=== PATIENT | male | born 1990 | race American Indian/Alaskan Native ===

== ENCOUNTER 2020-10-18 02:40 | Emergency (ER) | payer SELFPAY ==
[2020-10-18] MEDS ORDERED: levETIRAcetam 500 MG TAB PO ONE (02:53)
[2020-10-18] MEDS ORDERED: levETIRAcetam 1000 MG/NS 0.75% 1,000 MG/100 ML BAG IV ONE (02:54)
[2020-10-18] MEDS ORDERED: TOPIRAMATE TAB 100 MG TAB PO ONE (02:54)
--- NOTE | 2020-10-18 03:52 | Emergency Department Report ---
ED Seizure HPI - General Stated Complaint: SEIZURES Time Seen by Provider: 10/18/20 02:54 Source: patient Mode of arrival: Stretcher Limitations: Altered Mental Status - History of Present Illness Initial Comments: 30-year-old male with a past medical history of seizure disorder who presents from mother-baby unit with multiple seizures. Patient apparently is a visitor and his is currently being treated. He had 4 seizures prior to ED arrival. He has been noncompliant with his Keppra and Topamax because he is at the bedside of his the past 4 days. Patient presents alert and oriented however appears to be weak with difficulty standing. Actively trying to leave the department and trying to refuse medical treatment. Patient is unstable for discharge given that he is postictal and unable to stand or ambulate without assistance. Patient is requiring constant counseling regarding importance of staying in the ED and continuing treatment. Wants to leave so he can be at his 's bedside. Is reported that patient did hit his head during his seizure activity - Related Data Allergies Allergy/AdvReac Type Severity Reaction Status Date / Time No Known Allergies Allergy Verified 10/18/20 03:00 ED Review of Systems ROS: Stated complaint: SEIZURES Other details as noted in HPI Comment: All other systems reviewed and negative ED Physical Exam - Other Other exam information: General: No acute distress Head: Atraumatic Eyes: normal appearance ENT: Moist mucous membranes Neck: Normal appearance, no midline tenderness Chest: Clear to auscultation bilaterally CV: Regular rate and rhythm Abdomen: Soft, normal bowel sounds, nontender, nondistended, no rebound or guarding Back: Normal inspection Extremity: Normal inspection, full range of motion Neuro: Alert, unsteady gait, no focal or sensory deficit. No slurred speech Psych: Appropriate behavior Skin: No rash ED Course Vital Signs 10/18/20 03:56 Temperature 98.2 F Pulse Rate 96 H Respiratory 18 Rate Blood Pressure 128/80 [Left] O2 Sat by Pulse 96 Oximetry - Reevaluation(s) Reevaluation #1: 10/18/20 04:58 Patient received IV Keppra and p.o. Topamax. He eloped from the department with IV in place and was back at mother-baby. Mother baby then placed him in a wheelchair and wheeled him back to the ED. Patient is now able to stand without assistance and states his girlfriend will be discharged tomorrow and he will be able to take his medications at that time. He is requesting to be discharged at this time. His labs and CT are unremarkable. ED Medical Decision Making - Lab Data Result diagrams: 10/18/20 03:31 10/18/20 03:31 Lab Results 10/18/20 10/18/20 Range/Units 03:31 03:31 WBC 9.6 (4.5-11.0) K/mm3 RBC 4.84 (3.65-5.03) M/mm3 Hgb 14.4 (11.8-15.2) gm/dl Hct 41.6 (35.5-45.6) % MCV 86 (84-94) fl MCH 30 (28-32) pg MCHC 35 H (32-34) % RDW 14.2 (13.2-15.2) % Plt Count 164 (140-440) K/mm3 Lymph % (Auto) 15.1 (13.4-35.0) % [place] % (Auto) 9.2 H (0.0-7.3) % Eos % (Auto) 0.8 (0.0-4.3) % Baso % (Auto) 0.8 (0.0-1.8) % Lymph # (Auto) 1.5 (1.2-5.4) K/mm3 [place] # (Auto) 0.9 H (0.0-0.8) K/mm3 Eos # (Auto) 0.1 (0.0-0.4) K/mm3 Baso # (Auto) 0.1 (0.0-0.1) K/mm3 Seg Neutrophils % 74.1 H (40.0-70.0) % Seg Neutrophils # 7.1 (1.8-7.7) K/mm3 Sodium 136 L (137-145) mmol/L Potassium 4.7 (3.6-5.0) mmol/L Chloride 102.2 (98-107) mmol/L Carbon Dioxide 20 L (22-30) mmol/L Anion Gap 19 mmol/L BUN 9 (9-20) mg/dL Creatinine 0.8 (0.8-1.3) mg/dL Estimated GFR > 60 ml/min BUN/Creatinine Ratio 11 % Glucose 105 H (75-100) mg/dL Calcium 9.1 (8.4-10.2) mg/dL Magnesium 1.90 (1.7-2.3) mg/dL - Radiology Data Radiology results: report reviewed CT head/brain wo con INDICATION: seizure x4, head injury. TECHNIQUE: Routine CT head. All CT scans at this location are performed using CT dose reduction for ALARA by means of automated exposure control. COMPARISON: None. FINDINGS: Intracranial: Herndon-white matter differentiation is maintained. No intracranial hemorrhage. No extra axial collection. No hydrocephalus. No herniation. Hyperattenuation along the left cerebellum on axial imaging represents a calcification along the tentorium. Sinuses: Paranasal sinuses and mastoid air cells are essentially clear. Orbits: Globes are intact. Calvarium: No acute fracture. Small right posterior occipital scalp encapsulated macroscopic fat containing lesion without nodularity or thickened septations. 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 IMPRESSION: 1. No acute intracranial abnormality. - Medical Decision Making 30-year-old male presents to the hospital after having 4 seizures in mother baby while he was accompanying/visiting his girlfriend who recently delivered a baby. Patient has been in mother-baby for last 4 days and has not had access to his seizure medication. During ED stay patient required recurrent encouragement to stay in the ED because he was adamant about leaving the de partment without treatment because he wanted to be by his girlfriend side. Upon arrival patient's gait was too unsteady and he was exhibiting post ictal symptoms and therefore he was held in the ED to complete his course of treatment for his safety. Patient did receive IV Keppra and p.o. Topamax. He eloped from the department with IV in place and went back to mother-baby. Mother baby wheeled him back to the ED to continue his treatment. Patient's vitals, labs, and CT head unremarkable. At time of discharge. Was able to stand and walk independently and is more cooperative. He will be discharged at this time with plans to resume his home meds in the a.m. Critical Care Time: No Critical care attestation.: If time is entered above; I have spent that time in minutes in the direct care of this critically ill patient, excluding procedure time. ED Disposition Clinical Impression: Seizure, Noncompliance with medication regimen Disposition: DC-01 TO HOME OR SELFCARE Is pt being admited?: No Does the pt Need Aspirin: No Condition: Stable Instructions: Seizure, Adult, [id number] Additional Instructions: Take your medications as prescribed. Follow-up with your doctor or doctor/clinic provided. Return if symptoms worsen as indicated by your discharge instructions. Referrals: your, doctor [Other] - 3-5 Days ERNESTO LAIRD MD [Staff Physician] - 3-5 Days Time of Disposition: 05:01
[2020-10-18 03:54] LABS: Basophils # (Auto) 0.1 K/mm3 (0.0-0.1); Basophils % (Auto) 0.8 % (0.0-1.8); Eosinophils # (Auto) 0.1 K/mm3 (0.0-0.4); Eosinophils % (Auto) 0.8 % (0.0-4.3); Hematocrit 41.6 % (35.5-45.6); Hemoglobin 14.4 gm/dl (11.8-15.2); Lymphocytes # (Auto) 1.5 K/mm3 (1.2-5.4); Lymphocytes % (Auto) 15.1 % (13.4-35.0); Mean Corpuscular HGB Conc 35 % (32-34); Mean Corpuscular Volume 86 fl (84-94); Monocytes # (Auto) 0.9 K/mm3 (0.0-0.8); Monocytes % (Auto) 9.2 % (0.0-7.3); Platelet Count 164 K/mm3 (140-440); Red Blood Count 4.84 M/mm3 (3.65-5.03); Red Cell Distribution Width 14.2 % (13.2-15.2)
[2020-10-18 03:57] VITALS: BP 128/80
--- NOTE | 2020-10-18 03:58 | Cat Scan Report ---
CT head/brain wo con INDICATION: seizure x4, head injury. TECHNIQUE: Routine CT head. All CT scans at this location are performed using CT dose reduction for A ABDIRIZAK by means of automated exposure control. COMPARISON: None. FINDINGS: Intracranial: Herndon-white matter differentiation is maintained. No intracranial hemorrhage. No extra a xial collection. No hydrocephalus. No herniation. Hyperattenuation along the left cerebellum on axial imaging represents a calcification along the tentorium. Sinuses: Paranasal sinuses and mastoid air cells are essentially clear. Orbits: Globes are intact. Calvarium: No acute fracture. Small right posterior occipital scalp encapsulated macroscopic fat cont aining lesion without nodularity or thickened septations. Findings consistent with a lipoma without s uspicious features, image 4 of series 2. IMPRESSION: 1. No acute intracranial abnormality. Signer Name: Trey Ashton MD Signed: 10/18/2020 3:53 AM Workstation Name: [id number]
[2020-10-18 04:14] LABS: BUN/Creatinine Ratio 11; Blood Urea Nitrogen 9 mg/dL (9-20); Calcium 9.1 mg/dL (8.4-10.2); Hemolysis Index 151
== END 2020-10-18 05:10 | disposition home or self-care (01) ==
LOC: ED 02:40
DX: G40.909 Epilepsy, unspecified, not intractable, without status epilepticus (principal); Z91.14 Patient's other noncompliance with medication regimen
CPT/HCPCS: 36415; 70450; 80048; 83735; 85025; 96374; 99284; J1953

== ENCOUNTER 2021-04-23 22:20 | Emergency (ER) | payer SELFPAY ==
--- NOTE | 2021-04-23 23:37 | XRay Report ---
XR chest routine 2V INDICATION / CLINICAL INFORMATION: cough COMPARISON: None available. FINDINGS: SUPPORT DEVICES: None. HEART / MEDIASTINUM: No significant abnormality. LUNGS / PLEURA: Lungs are clear. Costophrenic sulci are sharp. No pneumothorax. ADDITIONAL FINDINGS: No significant additional findings. IMPRESSION: 1. No acute findings. Signer Name: Trey Ashton MD Signed: 04/23/2021 11:33 PM Workstation Name: [id number]
[2021-04-23 23:38] LABS: Hematocrit 49.4 % (35.5-45.6); Hemoglobin 16.8 gm/dl (11.8-15.2); Mean Corpuscular HGB Conc 34 % (32-34); Mean Corpuscular Volume 86 fl (84-94); Platelet Count 166 K/mm3 (140-440); Red Blood Count 5.77 M/mm3 (3.65-5.03); Red Cell Distribution Width 13.8 % (13.2-15.2)
[2021-04-23] MEDS ORDERED: ONDANSETRON 4 MG/2 ML INJ IV ONE (23:52)
[2021-04-23] MEDS ORDERED: FAMOTIDINE 20 MG/2 ML INJ IV ONE (23:52)
[2021-04-23] MEDS ORDERED: SODIUM CHLORIDE 0.9% 1000 ML 1,000 ML IV ONE (23:52)
[2021-04-23 23:58] LABS: Alanine Aminotransferase 14 units/L (7-56); Albumin 4.5 g/dL (3.9-5); BUN/Creatinine Ratio 7; Blood Urea Nitrogen 8 mg/dL (9-20); Hemolysis Index 12
--- NOTE | 2021-04-24 00:41 | Emergency Department Report ---
ED General Adult HPI - General Chief complaint: Nausea/Vomiting/Diarrhea Stated complaint: CANNOT EAT/DRINK/MOLD IN HOME Time Seen by Provider: 04/23/21 23:46 Source: patient Mode of arrival: Ambulatory Limitations: No Limitations - History of Present Illness Initial comments: Patient is a 30-year-old F [place] male with past medical history of diabetes seizure disorder who is complaining of cough. Patient states been coughing off and on usually in his apartment for the past 3 weeks. Patient is states he has had exposure to black mold in his apartment and there is other family members coughing as well. Denies any fever body aches sore throat. Patient states that he is so congested now that he is vomiting. States been throwing up for the la st 2 days. Has some mild epigastric discomfort. Denies any diarrhea. Severity scale (0 -10): 0 - Related Data Previous Rx's Medication Instructions Recorded Last Taken Type Albuterol Mdi (or & Nicu Only) 2 puff IH QID PRN #1 inhalation 04/24/21 Unknown Rx [ProAir HFA Inhaler] Benzonatate [Tessalon Perles] 100 mg PO Q8HR #10 capsule 04/24/21 Unknown Rx Famotidine [Pepcid] 40 mg PO QHS #10 tablet 04/24/21 Unknown Rx Ondansetron [Zofran Odt] 4 mg PO Q8HR #10 tab.rapdis 04/24/21 Unknown Rx Allergies Allergy/AdvReac Type Severity Reaction Status Date / Time No Known Allergies Allergy Verified 10/18/20 03:00 ED Review of Systems ROS: Stated complaint: CANNOT EAT/DRINK/MOLD IN HOME Other details as noted in HPI Comment: All other systems reviewed and negative ED Past Medical Hx - Past Medical History Previous Medical History?: Yes Hx Diabetes: Yes Hx Sickle Cell Disease: Yes Hx Seizures: Yes Additional medical history: Anemia - Surgical History Past Surgical History?: No - Social History Smoking Status: Never Smoker Substance Use Type: None - Medications Home Medications: Home Medications Medication Instructions Recorded Confirmed Last Taken Type Albuterol Mdi (or & Nicu Only) 2 puff IH QID PRN #1 inhalation 04/24/21 Unknown Rx [ProAir HFA Inhaler] Benzonatate [Tessalon Perles] 100 mg PO Q8HR #10 capsule 04/24/21 Unknown Rx Famotidine [Pepcid] 40 mg PO QHS #10 tablet 04/24/21 Unknown Rx Ondansetron [Zofran Odt] 4 mg PO Q8HR #10 tab.rapdis 04/24/21 Unknown Rx ED Physical Exam - General Limitations: No Limitations General appearance: alert, in no apparent distress - Head Head exam: Present: atraumatic, normocephalic - Eye Eye exam: Present: normal appearance, PERRL, EOMI - ENT ENT exam: Present: mucous membranes moist - Neck Neck exam: Present: normal inspection - Respiratory Respiratory exam: Present: normal lung sounds bilaterally. Absent: respiratory distress, wheezes, rales, rhonchi - Cardiovascular Cardiovascular Exam: Present: regular rate, normal rhythm, normal heart sounds. Absent: systolic murmur, diastolic murmur, rubs, gallop - GI/Abdominal GI/Abdominal exam: Present: soft, tenderness (mild epigastric ), normal bowel sounds. Absent: distended, guarding, rebound, rigid - Rectal Rectal exam: Present: deferred - Extremities Exam Extremities exam: Present: normal inspection - Back Exam Back exam: Present: normal inspection - Neurological Exam Neurological exam: Present: alert, oriented X3 - Psychiatric Psychiatric exam: Present: normal affect, normal mood - Skin Skin exam: Present: warm, dry, intact, normal color. Absent: rash ED Course Vital Signs 04/23/21 04/23/21 04/24/21 22:56 23:04 00:11 Temperature 99 F Pulse Rate 80 91 H Respiratory 20 20 Rate Blood Pressure 129/82 Blood Pressure 101/73 [Left] O2 Sat by Pulse 96 99 Oximetry 04/24/21 00:13 Temperature Pulse Rate Respiratory 20 Rate Blood Pressure Blood Pressure [Left] O2 Sat by Pulse 99 Oximetry ED Medical Decision Making - Lab Data Result diagrams: 04/23/21 23:22 04/23/21 23:22 Lab Results 04/23/21 04/23/21 04/23/21 Range/Units 23:22 23:22 23:22 WBC 7.4 (4.5-11.0) K/mm3 RBC 5.77 H (3.65-5.03) M/mm3 Hgb 16.8 H (11.8-15.2) gm/dl Hct 49.4 H (35.5-45.6) % MCV 86 (84-94) fl MCH 29 (28-32) pg MCHC 34 (32-34) % RDW 13.8 (13.2-15.2) % Plt Count 166 (140-440) K/mm3 [place] % (Auto) Track Rider VBG pH 7.436 H (7.320-7.420) Sodium 137 (137-145) mmol/L Potassium 4.4 (3.6-5.0) mmol/L Chloride 102.0 (98-107) mmol/L Carbon Dioxide 23 (22-30) mmol/L Anion Gap 16 mmol/L BUN 8 L (9-20) mg/dL Creatinine 1.1 (0.8-1.3) mg/dL Estimated GFR > 60 ml/min BUN/Creatinine Ratio 7 % Glucose 96 (75-100) mg/dL POC Glucose (70-105) mg/dL Calcium 9.0 (8.4-10.2) mg/dL Total Bilirubin 0.60 (0.1-1.2) mg/dL AST 23 (5-40) units/L ALT 14 (7-56) units/L Alkaline Phosphatase 96 (35-129) units/L Total Protein 7.3 (6.3-8.2) g/dL Albumin 4.5 (3.9-5) g/dL Albumin/Globulin Ratio 1.6 % 04/23/21 Range/Units 23:24 WBC (4.5-11.0) K/mm3 RBC (3.65-5.03) M/mm3 Hgb (11.8-15.2) gm/dl Hct (35.5-45.6) % MCV (84-94) fl MCH (28-32) pg MCHC (32-34) % RDW (13.2-15.2) % Plt Count (140-440) K/mm3 [place] % (Auto) VBG pH (7.320-7.420) Sodium (137-145) mmol/L Potassium (3.6-5.0) mmol/L Chloride (98-107) mmol/L Carbon Dioxide (22-30) mmol/L Anion Gap mmol/L BUN (9-20) mg/dL Creatinine (0.8-1.3) mg/dL Estimated GFR ml/min BUN/Creatinine Ratio % Glucose (75-100) mg/dL POC Glucose 104 (70-105) mg/dL Calcium (8.4-10.2) mg/dL Total Bilirubin (0.1-1.2) mg/dL AST (5-40) units/L ALT (7-56) units/L Alkaline Phosphatase (35-129) units/L Total Protein (6.3-8.2) g/dL Albumin (3.9-5) g/dL Albumin/Globulin Ratio % - Radiology Data [facility], [place] [address] [place] [address] XRay Report Signed Patient: AMY PENG MR#: [id number] 3 : 1990 Acct:[id number] Age/Sex: 30 / M ADM Date: 04/23/21 Loc: ED Attending Dr: Ordering Physician: LINDSEY HAYES MD Date of Service: 04/23/21 Procedure(s): XR chest routine 2V Accession Number(s): [id number] cc: ED MD FREDDY Fluoro Time In Minutes: XR chest routine 2V INDICATION / CLINICAL INFORMATION: cough COMPARISON: None available. FINDINGS: SUPPORT DEVICES: None. HEART / MEDIASTINUM: No significant abnormality. LUNGS / PLEURA: Lungs are clear. Costophrenic sulci are sharp. No pneumothorax. ADDITIONAL FINDINGS: No significant additional findings. IMPRESSION: 1. No acute findings. Signer Name: Trey Ashton MD Signed: 04/23/2021 11:33 PM Workstation Name: [id number] - Medical Decision Making Patient vital signs stable and there is no pneumonia on chest x-ray. Patient given IV fluids and states he has been able to keep anything down for the last 2 days Pepcid and Zofran. He states he is feeling better and is tolerating p.o. Critical care attestation.: If time is entered above; I have spent that time in minutes in the direct care of this critically ill patient, excluding procedure time. ED Disposition Clinical Impression: Suspected exposure to mold Acute bronchitis Qualifiers: Bronchitis organism: unspecified organism Qualified Code(s): J20.9 - Acute bronchitis, unspecified Gastritis Qualifiers: Gastritis type: unspecified gastritis Chronicity: acute Gastritis bleeding: without bleeding Qualified Code(s): K29.00 - Acute gastritis without bleeding Disposition: DC- TO HOME OR SELFCARE Is pt being admited?: No Does the pt Need Aspirin: No Condition: Stable Instructions: Acute Bronchitis (ED), Acute Bronchitis, Adult, [id number], Gastritis, Adult, [id number] Referrals: YASMANI CHOWDHURYBRIDGETON MD GT [Referring] - 3-5 Days Time of Disposition: 00:44
[2021-04-24] MEDS ORDERED: ONDANSETRON 4 MG/2 ML INJ IV ONE ×2 (01:13→01:14)
[2021-04-24 01:39] LABS: Band Neutrophils # (Manual) 0.1 K/mm3; Total Cells Counted 100
[2021-04-24 01:40] LABS: Large Platelets Few; Platelet Estimate Consistent w Auto; RBC Morphology Normal
[2021-04-24 02:15] VITALS: BP 118/60
== END 2021-04-24 02:32 | disposition home or self-care (01) ==
LOC: ED 22:20
DX: K29.00 Acute gastritis without bleeding (principal); J20.9 Acute bronchitis, unspecified; E11.9 Type 2 diabetes mellitus without complications; D64.9 Anemia, unspecified; Z77.120 Contact with and (suspected) exposure to mold (toxic); Z86.69 Personal history of other diseases of the nervous system and sense organs; Z79.899 Other long term (current) drug therapy
CPT/HCPCS: 36415; 71046; 80053; 82805; 82962; 85007; 85025; 96361; 96374; 96375; 99284; J2405; J7030